=== PATIENT | female | born 2005 | race Caucasian/White ===

== ENCOUNTER 2023-02-14 22:03 | Emergency (ER) | payer BC ==
[2023-02-14] MEDS ORDERED: Ondansetron 4 MG/2 ML SDV IVPUSH ONE (22:25)
[2023-02-14] MEDS ORDERED: Ketorolac 30 MG/ML SDV IVPUSH SCH (22:30)
[2023-02-14] MEDS ORDERED: Dextrose 5%-Lactated Ringers 1,000 ML IV SCH (22:30)
== END 2023-02-14 23:53 | disposition home or self-care (01) ==
LOC: JD.ED 22:03
DX: K52.9 Noninfective gastroenteritis and colitis, unspecified (principal); E86.9 Volume depletion, unspecified
CPT/HCPCS: 36415; 80053; 85025; 86140; 96361; 96374; 99284; J1885; J2405; J7121; 99283

== ENCOUNTER 2023-06-20 13:23 | Emergency (ER) | payer BC ==
[2023-06-20] MEDS ORDERED: Ibuprofen 600 MG Tab PO ONE (15:06)
[2023-06-20] MEDS ORDERED: Orphenadrine 100 MG Tab.ER PO ONE (15:07)
== END 2023-06-20 15:34 | disposition home or self-care (01) ==
LOC: JD.ED 13:23
DX: M54.42 Lumbago with sciatica, left side (principal); M54.41 Lumbago with sciatica, right side
CPT/HCPCS: 99283; A9270; 99282